=== PATIENT | female | born 1960 | race Caucasian/White ===

== ENCOUNTER 2022-03-20 14:17 | Emergency (ER) | payer MEDICAID ==
[~2022-03-20] VITALS: Ht 157.5 cm; Wt 72.7 kg
[~2022-03-20 14:17] MED LIST: BUSP5TAB3 PO; CHOL10002 PO; CRANBERRY; CYAN100019 PO; DICL100G15 TP; DOCU-348 PO; GABA300C PO; LEVO50TA8 PO; LORA10TA7 PO; MULT-620 PO; OMEP20CA4 PO
[2022-03-20 14:20] VITALS: BP 117/81
== END 2022-03-20 16:11 | disposition home or self-care (01) ==
LOC: ER 14:17
DX: R51.9 Headache, unspecified (principal); Z88.2 Allergy status to sulfonamides; Z88.5 Allergy status to narcotic agent; Z91.041 Radiographic dye allergy status
CPT/HCPCS: 99282